=== PATIENT | female | born 1990 | race Caucasian/White ===

== ENCOUNTER 2016-09-12 06:00 | Inpatient (IN) ==
[2016-09-12] MEDS ORDERED: Famotidine 20 MG/2 ML VIAL IVP PRN (06:43)
[2016-09-12] MEDS ORDERED: Metoclopramide 10 MG/2 ML VIAL IVP PRN (06:43)
[2016-09-12] MEDS ORDERED: Naloxone 0.4 MG/ML INJ IVP PRN (06:43)
[2016-09-12] MEDS ORDERED: miSOPROStol 100 MCG TABLET PO STA (06:47)
[2016-09-12] MEDS ORDERED: D5% in 0.45% NACL 1,000 ML IVC SCH (07:00)
[2016-09-12 07:07] LABS: Basophils % 0.2 %; Eosinophils # 0.2 K/mcL (0.0-0.6); Eosinophils % 0.9 %; Hematocrit 40.5 % (35.3-44.9); Hemoglobin 12.8 g/dL (11.5-15.4); Immature Granulocytes % 1.1 % (0-4); Lymphocytes # 2.6 K/mcL (0.6-4.6); Lymphocytes % 14.6 %; Mean Corpuscular HGB Conc 31.6 g/dL (31.6-35.5); Mean Corpuscular Hemoglobin 27.6 pg (28.0-33.3); Mean Corpuscular Volume 87.5 fL (83.0-100.0); Mean Platelet Volume 10.6 fL (9.4-12.4); Monocytes # 0.9 K/mcL (0.0-1.3); Monocytes % 5.1 %; Neutrophils # 13.7 K/mcL (1.6-8.9); Platelet Count 254 K/mcL (140-400); Red Blood Count 4.63 M/mcL (3.82-4.97); Red Cell Distribution Width 14.3 % (11.5-14.5); Segmented Neutrophils % 78.1 %
--- NOTE | 2016-09-12 07:33 | OB/GYN History & Physical ---
Date of Encounter: 09/12/16 Time of Encounter: 08:29 Assessment and Plan (1) 39 weeks gestation of Current visit: Yes Status: Acute (2) Elective induction of labor planned Current visit: Yes Status: Acute Ms. Kaur is a 25 year old female at 39+5 reports to L&D for induction of labor. Patient was last seen in the office yesterday was measured as 3/60/-2 Labs: Blood type: O-, GBS -, Rubella immune, all other serologies normal. Plan is for elective induction today. Patient will be given cytotec. Progress will be monitored. Expect vaginal delivery. History of Present Illness Chief complaint: Induction of Labor HPI: Ms. Kaur is a 25 year old female at 39+5 reports to L&D for induction of labor. Patient received a rhogham injection at 31 weeks. Patient was last seen in the office yesterday was measured as 3/60/-2. There were no complications with this . Patient reports good movements. Patient denies vaginal bleeding, loss of fluid, feeling contractions, Chest pain, SOB, Nausea, vomiting, diarrhea, headache, blurry vision. Labs: Blood type: O-, GBS -, Rubella immune, all other serologies normal Past Med Surg Social Fam HX - Past Medical History Medical history: no medical history Psychiatric history: no psych history - Past Surgical History Surgical History: no surgical history - Social History Smoking Status: Never smoker Smokeless Tobacco Status: No Alcohol use: none Drug use: none - Family History Mother Living Status: Still Living Hx Family Cancer: Yes (thyroid cancer) Obstetrical History - Pregnancies : 1 Para: 0 Medications and Allergies Vitamins 1 tab PO DAILY 08/30/16 [History] Allergies No Known Allergies Allergy (Verified 01/30/16 19:24) Review of System OB All systems PM: reviewed and no additional remarkable complaints except as stated Exam - Constitutional Constitutional: well developed, well nourished, no acute distress - HEENT HEENT: EOMI, Mucus Membranes Moist - Neck Neck exam: normal inspection - Lungs Respiratory exam: CTAB - Cardiovascular Cardiovascular exam: RRR - Abdomen Abdomen: Present: bowel sounds normal, gravid, non tender (soft) - Extremities Extremities exam: normal inspection Deep Tendon Reflex Grade: 1+ Diminished - Cervix Dilation: 3 (per exam yesterday in office) Effacement: 60 Station: -2 Results Result Diagrams: 09/12/16 06:57 Abnormal lab results WBC 17.5 K/mcL (4.3-11.1) H 09/12/16 06:57 MCH 27.6 pg (28.0-33.3) L 09/12/16 06:57 Neutrophils # 13.7 K/mcL (1.6-8.9) H 09/12/16 06:57 All other labs normal. - VTE Reasons for not Prescribing Prophylaxis: Treatment not Indicated - Low risk for VTE - Attending Attestation I examined this patient and my medical decision-making was reviewed with the Resident Physician. I agree with the documented findings, disposition and treatment plan as described. Marnie Figueroa CNM
--- NOTE | 2016-09-12 10:55 | Anesthesia Evaluation PreOp ---
Date of Encounter: 09/12/16 Time of Encounter: 10:53 - Past History Planned Operation: emile Cardiac History: Denies any Significant Hx Pulmonary History: Denies Any Significant HX BOAT MASTER History: Denies Any Significant HX Other Medical History: Denies Any Significant HX Anesthesia History: No Prior Anesthetic Complications, Past Anesthesia : Yes (39 plus 5, ) Alcohol Use: none Drug use: none Medications and Allergies Vitamins 1 tab PO DAILY 08/30/16 [History] Allergies No Known Allergies Allergy (Verified 01/30/16 19:24) - Meds/Allergy Pre-op Review Medications Reviewed: Yes Allergies Reviewed: Yes Beta Blockers on Current Med List: No Anesthesia Results - Labs 09/12/16 06:57 Anesthesia Exam O2 Sat Height 1.7 m Weight 100.8 kg bp 134/82 Height: 67 Weight: 100 NPO (# of Hours): clear liquids - HEENT Pupil (Motor): Pupils equal Mallampati: II Teeth: Normal Oral Opening: Greater than 3 - BOAT MASTER LOC: Oriented BOAT MASTER Motor: Normal RUE, Normal LUE, Normal RLE, Normal LLE, Normal Face BOAT MASTER Sensory: Normal: RUE, LUE, RLE, LLE, Face - Cardiac Rhythm: Regular Murmur: None JVD: No Carotid Bruit: No - Pulmonary Breath Sounds: bilateral Clear Respiratory Effort: Symmetrical Anesthesia Assess/Plan ASA Score: 2 Modified Jeyson Scale for Level of Consciousness: Cooperative, oriented, and tranquil Anesthetic Plan: Regional Monitoring Plan: Standard Monitors Recovery Plan: Other
--- NOTE | 2016-09-12 10:58 | OB Labor Progress Note ---
Date of Encounter: 09/12/16 Time of Encounter: 10:00 Labor Progress Note - Subjective Subjective: Patient sitting on birthing ball. Not feeling any contractions - Vital Signs Vital Signs: VSS - Cervix Cervix: 2-3/70/-2 per exam in office yesterday - Heart Tones Heart Tones: 140's with moderate variability and accels. No decels noted - [place]: No contractions present per toco, palpation, or patient report - Plan Plan: Continue routine labor management GBS negative May consider second dose of cytotec at next cervical exam vs AROM vs pitocin Patient may have nubain upon request for pain Anticipate vaginal delivery POC per consult with Dr Gaviria
[2016-09-12] MEDS ORDERED: miSOPROStol 100 MCG TABLET PO SCH (11:45)
[2016-09-12] MEDS ORDERED: Ringers Solution, Lactated 1,000 ML ONE ×2 (15:50→22:51)
--- NOTE | 2016-09-12 15:53 | OB Labor Progress Note ---
Date of Encounter: 09/12/16 Time of Encounter: 15:47 Labor Progress Note - Subjective Subjective: Patient resting comfortably in bed. States she's feeling some mild cramps - Vital Signs Vital Signs: VSS - Cervix Cervix: 3-4/80/-1 tight, midposition - Heart Tones Heart Tones: 140's moderate variability with 15 x 15 accels and no decels - [place]: Irritability per toco and patient report - Plan Plan: Continue routine labor management GBS negative Patient is requesting epidural prior to AROM AROM after epidural placed and patient is comfortable Consider augmentation with pitocin if needed Anticipate vaginal delivery POC per consult with Dr Gaviria
[2016-09-12] MEDS ORDERED: *HR* Ropivacaine/PF 0.2% 10 ML AMPUL ONE ×2 (16:59→23:14)
[2016-09-12] MEDS ORDERED: *HR* FentaNYL (PF) 100 MCG/2 ML VIAL ONE (16:59)
[2016-09-12] MEDS ORDERED: Epidural Premix (fent/bupiv) 110 ML EP ONE (16:59)
[2016-09-12] MEDS ORDERED: *HR* FentaNYL (PF) 100 MCG/2 ML VIAL EP ONE (17:56)
[2016-09-12] MEDS ORDERED: *HR* Ropivacaine/PF 0.2% 10 ML AMPUL EP ONE (17:56)
[2016-09-12] MEDS ORDERED: EPHEDrine 50 MG/ML VIAL IVP PRN (17:56)
[2016-09-12] MEDS ORDERED: Ondansetron 4 MG/2 ML VIAL IVP PRN (17:56)
[2016-09-12] MEDS ORDERED: Epidural Premix (fent/bupiv) 110 ML EP SCH (18:00)
--- NOTE | 2016-09-12 18:01 | Anesthesia Procedures ---
Date of Encounter: 09/12/16 Time of Encounter: 17:57 Procedures: Anesthesia - Epidural/Spinal Patient ID/Chart reviewed: Yes Patient examined: Yes OB Eval: Contractions: Non-stressed pattern Supplemental Oxygen: None/Room Air Site Prep: Aseptic Technique, 0.5% Chlorhexidine/Alcohol Patient position: upright Local Anesthetic: Lidocaine 1% Amount of Local Anesthetic used: 3 Touhy Needle Gauge: 18 Touhy Needle Depth (cm): 6 Catheter Depth at Skin (cm): 12 Test Dose (1.5% Lido + Epi): Volume given (mls): 3 Test Dose Result: Negative Loading Dose: Fentanyl (mcg): 100 Loading Dose: Other: 6CC 0.2% ROPIVICAINE, 2CC FENTANYL Loading Dose Administered: Thru Touhy Needle Infusion Med: 0.125% Bupivacaine w/ 2 mcg/ml Fentanyl Infusion Rate (mls/hr): [address]: Tegaderm Interspace Used: L3-L4 Loss of Resistance (ERASMO): Yes Blood: Yes (see note) CSF: No Paresthesia: No Procedure: Strict asepsis. L2-3 x 4 passes until ERASMO. Bolus thru needle and catheter threaded into vessel and confirmed by positive test dose. L2-3 again x 2 passes until ERASMO. Catheter threaded to 12 cm, test dose negative. Gtt started at 14ml/hr.
--- NOTE | 2016-09-12 18:08 | OB Labor Progress Note ---
Date of Encounter: 09/12/16 Time of Encounter: 18:06 Labor Progress Note - Subjective Subjective: Resting comfortably in bed with epidural in place. - Vital Signs Vital Signs: VSS - Cervix Cervix: 4/80/-1 soft mid-position - Heart Tones Heart Tones: 130's with moderate variability and 15 x 15 accels with no decels. - [place]: occasional contractions - Interventions Interventions: Attempt to SROM x 2. No fluid noted, but felt bag snag. - Plan Plan: Continue routine labor management GBS negative Start pitocin at 2x2 until in adequate labor pattern Anticipate vaginal delivery POC per consult with Dr Gaviria.
[2016-09-12] MEDS ORDERED: Oxytocin 20 units/ LR 1000 mL 20 UNIT/1,000 ML BAG IVC SCH (18:15)
--- NOTE | 2016-09-12 22:09 | OB Labor Progress Note ---
Date of Encounter: 09/12/16 Time of Encounter: 22:07 Labor Progress Note - Subjective Subjective: Patient resting comfortably in bed with epidural in place - Vital Signs Vital Signs: VSS - Cervix Cervix: 5-6/80/-1 small-moderate amount of cap palpated during exam. - Heart Tones Heart Tones: 110-120's with moderate variability and 15 x 15 accels and early decels - [place]: contractions every 2-4 minutes per toco moderate to palpation. - Interventions Interventions: Internal monitors placed. IUPC and FSE placed without difficulty; fetus and mother tolerated well. - Plan Plan: Continue routine labor management GBS negative Ruptured for 4 hours Pitocin currently running at 8mu/min, adequate labor pattern Encouraged frequent position changes with peanut ball to encourage rotation Continue to monitor caput with vaginal exams Anticipate vaginal delivery, consider c/s if caput continues to increase without change in dilation/ station POC per consult with Dr Gaviria.
[2016-09-12] MEDS ORDERED: 0.9 % Sodium Chloride 1,000 ML ONE (22:55)
--- NOTE | 2016-09-12 23:03 | OB Labor Progress Note ---
Date of Encounter: 09/12/16 Time of Encounter: 22:59 Labor Progress Note - Subjective Subjective: Asked to review strip / evaluate patient . - Cervix Cervix: /9 - Heart Tones Heart Tones: 120-160 with accelerations and accelerations with scalp stimulation .Episodic variables noted . Cat 2 . Will proceed with amnioinfusion .
--- NOTE | 2016-09-12 23:58 | OB Labor Progress Note ---
Date of Encounter: 09/12/16 Time of Encounter: 23:55 Labor Progress Note - Subjective Subjective: Patient resting comfortably in bed after epidural bolus and amnioinfusion started - Vital Signs Vital Signs: VSS - Cervix Cervix: 7-8/90/-1 - Heart Tones Heart Tones: 110-120 with moderate variability and early decels. category II - [place]: Contractions every 90seconds to 3 minutes. lasting 45-60 seconds in length. Adequate contractions per IUPC - Plan Plan: Continue routine labor management GBS negative Continue IV pitocin to maintain adequate contractions Anticipate vaginal delivery POC per consult with Dr Gaviria
[2016-09-13] MEDS ORDERED: Ringers Solution, Lactated 1,000 ML ONE ×2 (00:24→01:16)
[2016-09-13] MEDS ORDERED: Terbutaline 1 MG/ML VIAL SQ ONE (00:42)
[2016-09-13] MEDS ORDERED: Chloroprocaine/PF 20 ML VIAL INFILT ONE ×2 (00:46→01:18)
[2016-09-13] MEDS ORDERED: *HR* Oxytocin 10 UNIT/ML VIAL IM ONE (00:47)
--- NOTE | 2016-09-13 00:51 | OB Labor Progress Note ---
Date of Encounter: 09/13/16 Time of Encounter: 00:42 Labor Progress Note - Subjective Subjective: Patient resting comfortably in bed. - Vital Signs Vital Signs: VSS - Cervix Cervix: 8-9/100/-1 - Heart Tones Heart Tones: 110-120 with moderate variability accelerations with scalp stimulation, variable , early, and late decelerations. - [place]: contractions every 3-4 minutes 60 seconds in length - Interventions Interventions: Dr Gaviria notified for strip review and to update on strip. Dr Gaviria called section - Plan Plan: Discussed section with patient. Patient consents to with Dr Gaviria present for consent GBS negative Ruptured for 7 hours
[2016-09-13] MEDS ORDERED: *HR* Morphine Sulfate/PF 5 MG/10 ML AMPUL ONE (01:17)
[2016-09-13] MEDS ORDERED: Ondansetron 4 MG/2 ML VIAL ONE (01:25)
--- NOTE | 2016-09-13 02:09 | OB/GYN Procedure Note ---
Section - Date of procedure: 09/13/16 Preop diagnosis: category 2 FHT tracing Post-op diagnosis: same Procedure: primary low transverse Surgeon: Juan Gaviria Estimated blood loss (cc): 500 Anesthesiologist: Angelica Flores Anesthesia Type: Epidural section complications: none Disposition: PACU Specimens: Placenta - (s) A Infant Delivery Date: 09/13/16 Infant Delivery Time: : Position: ROP Gender: Male Viability: Viable Pounds: 5 Ounces: 15 at 1 minute: 8 at 5 minutes: 9 Specimens collected: cord blood Placenta: complete extraction Cord: nuchal cord - Narrative Narrative: Patient was taken to the operating room. She was placed in supine position, prepped and draped in usual manner. After satisfactory anesthesia was achieved and appropriate timeout was performed, the abdomen was entered through standard Maylard incision. A Tianna retractor was placed. Peritoneum overlying the lower uterine segment was incised in U-shaped fashion. Uterine cavity was entered sharply and extended laterally. Fluid was clear. The head, shoulders, torso were delivered. The umbilical cord was double clamped and cut and the was handed to nursery staff for further evaluation. The placenta was removed as to pathology for analysis. The uterus is brought from within the abdominal cavity and wiped clean. Uterus was closed with 0 Monocryl in a single layer. Peritoneum overlying the lower uterine segment was reapproximated with a 2-0 Vicryl. The retractor was removed. After assurance of hemostasis, the abdomen was closed in standard fashion using 0 Vicryl to fascia, 3-0 Monocryl and the skin, and sterile dressing was applied. Patient did well and was taken to recovery room in satisfactory condition. Counts were correct.
[2016-09-13] MEDS: *HR* HYDROmorphone (PF) 1 MG/ML SYRINGE IVP PRN ×2 (02:18→02:23)
[2016-09-13] MEDS ORDERED: Rho Immune Globulin 1,500 UNIT SYRINGE IM ONE (04:12)
[2016-09-13] MEDS ORDERED: Sennosides 8.6 MG TABLET PO PRN (04:12)
[2016-09-13] MEDS ORDERED: Simethicone 80 MG TAB.CHEW PO PRN (04:12)
[2016-09-13] MEDS ORDERED: Metoclopramide 10 MG/2 ML VIAL IVP PRN (04:12)
[2016-09-13] MEDS ORDERED: Ondansetron 4 MG/2 ML VIAL IVP PRN (04:12)
[2016-09-13] MEDS: *HR* Morphine 2 MG/ML SYRINGE IVP PRN ×2 (04:37→16:42)
[2016-09-13] MEDS: Prenatal Vit/FA 1 EACH TABLET PO SCH (08:41)
[2016-09-13] MEDS ORDERED: NON-FORMULARY MEDICATION 1 EACH EACH (Prenatal Vitamins 1 TAB) PO SCH (09:00)
[2016-09-13] MEDS: Ondansetron ODT 4 MG TAB.RAPDIS SL PRN ×2 (10:39→16:24)
[2016-09-13] MEDS: Oxytocin 20 units/ LR 1000 mL 20 UNIT/1,000 ML BAG IVC SCH ×2 (10:40→18:49)
[2016-09-13] MEDS: Ibuprofen 600 MG TABLET PO PRN ×2 (14:54→22:29)
[2016-09-13] MEDS ORDERED: Scopolamine Patch 1.5 MG PATCH.TD72 TD ONE (15:21)
[2016-09-13] MEDS ORDERED: *HR* Promethazine 25 MG/ML VIAL IVP PRN (15:22)
--- NOTE | 2016-09-13 15:28 | Anesthesia Evaluation Post Op ---
Date of Encounter: 09/13/16 Time of Encounter: 15:27 - Vital Signs Vital Signs: vss - Lungs Lungs: Clear Ascult./Percussion - Airway Airway: Non-obstructed - Mental Status Mental Status: Alert & Oriented, Answers Appropriately - Pain Pain Scale used: [place] (Faces) - Nausea Vomiting Nausea Vomiting: Present (wanting more medication to help)
[2016-09-14] MEDS: *HR* OxyCODONE/APAP 5/325 TABLET PO PRN ×4 (00:53→20:29)
[2016-09-14] MEDS: Ibuprofen 600 MG TABLET PO PRN ×3 (06:47→20:28)
[2016-09-14 07:02] LABS: Basophils % 0.2 %; Eosinophils # 0.1 K/mcL (0.0-0.6); Eosinophils % 0.8 %; Hematocrit 34.2 % (35.3-44.9); Immature Granulocytes % 1.2 % (0-4); Lymphocytes # 2.4 K/mcL (0.6-4.6); Lymphocytes % 19.8 %; Mean Corpuscular Hemoglobin 27.9 pg (28.0-33.3); Mean Platelet Volume 10.2 fL (9.4-12.4); Monocytes # 0.8 K/mcL (0.0-1.3); Monocytes % 6.3 %; Neutrophils # 8.7 K/mcL (1.6-8.9); Platelet Count 233 K/mcL (140-400); Red Cell Distribution Width 14.6 % (11.5-14.5); Segmented Neutrophils % 71.7 %
[2016-09-14 07:14] LABS: Hemoglobin 10.6 g/dL (11.5-15.4)
[2016-09-14] MEDS: Prenatal Vit/FA 1 EACH TABLET PO SCH (08:36)
--- NOTE | 2016-09-14 09:27 | OB/GYN Progress Note ---
Date of Encounter: 09/14/16 Time of Encounter: 09:23 - Assessment and Plan (1) delivery, delivered, current hospitalization Current Visit: Yes Status: Acute The patient has some delay return of bowel function. She is tolerating a regular diet and oral pain medication. Aggressive GI toilet recommended. Patient is to increase ambulation. If no flatus by lunch then rectal suppository has been ordered and nursing aware of plan of care (2) anemia Current Visit: Yes Status: Acute Iron supplementation as ordered (3) Constipation by delayed colonic transit Current Visit: Yes Status: Acute Observe for ileus. Increase ambulation, continue regular diet. Dulcolax suppository ordered if needed Subjective - Subjective Principal diagnosis: POD1 C/S Interval history: The patient is postop day 1 from a primary section. The patient is tolerating a regular diet and voiding. She had some nausea yesterday. She is taking oral pain medication. She reports that she feels her tummy rumbling but has not had any flatus. She has been ambulating in her room. Patient reports: voiding normally, pain well controlled, appetite poor, ambulating normally, other (No flatus) [place]: doing well, nursing well Objective - Vital Signs Latest vital signs: Vital Signs Temp Pulse Resp BP Pulse Ox 09/14/16 08:30 98.4 F 85 18 104/69 97 09/13/16 22:00 97.5 F L 90 15 112/74 98 09/13/16 15:38 98.7 F 99 18 111/71 09/13/16 11:59 98.0 F 99 16 106/66 Intake and Output 09/13/16 09/14/16 09/14/16 23:59 07:59 15:59 Intake Total 1000 / 1000 Output Total 900 / 900 450 / 450 Balance 100 / 100 -450 / -450 Intake: IV Fluids 1000 / 1000 Pitocin 20 unit In 1,000 1000 / 1000 ml @ 125 mls/hr IVC .Q8H [facility] Rx#:[id number] Output: Urine 450 / 450 Catheter 900 / 900 Other: Weight 96.4 kg Patient Weight 09/14/16 23:59 Weight 96.4 kg - Exam Lungs: bilateral: normal Chest: Normal S1, Normal S2 Extremities: Present: edema (2+). Absent: tenderness Abdomen: Present: distention (Mild with tympany), tenderness (Appropriate without peritoneal signs), other (Hypoactive bowel sounds) Incision: Present: dry, dressed - Labs Labs: Laboratory Results - last 24 hr 09/13/16 09/14/16 02:15 06:53 WBC 12.1 H RBC 3.80 L Hgb 10.6 L D Hct 34.2 L MCV 90.0 MCH 27.9 L MCHC 31.0 L RDW 14.6 H Plt Count 233 MPV 10.2 Immature Gran % 1.2 Seg Neutrophils % 71.7 Lymphocytes % 19.8 Monocytes % 6.3 Eosinophils % 0.8 Basophils % 0.2 Neutrophils # 8.7 Lymphocytes # 2.4 Monocytes # 0.8 Eosinophils # 0.1 Basophils # 0.0 Screen NEGATIVE Rhogam Req for Mother 1 - Allied health notes Allied health notes reviewed: nursing
[2016-09-14] MEDS ORDERED: Bisacodyl 10 MG RECTAL SUPPOSITORY RC PRN (09:33)
[2016-09-15] MEDS: Ibuprofen 600 MG TABLET PO PRN (08:17)
[2016-09-15] MEDS: *HR* OxyCODONE/APAP 5/325 TABLET PO PRN (08:17)
[2016-09-15] MEDS: Prenatal Vit/FA 1 EACH TABLET PO SCH (08:17)
[2016-09-15 09:36] VITALS: BP 98/66
--- NOTE | 2016-09-15 10:23 | Discharge Summary ---
Date of Encounter: 09/15/16 Time of Encounter: 10:23 - Discharge Diagnosis (1) delivery, delivered, current hospitalization Priority: Primary Status: Acute Comments: Pt meeting all milestones. Tolerates meals, pain well managed on PO medication, going well. - Discharge Medications Prescriptions: OxyCODONE/APAP 5/325 [Percocet 5/325 MG] 1 each PO Q4HR PRN #20 tab PRN Reason: Moderate pain 4-6 Ibuprofen [Motrin] 600 mg PO Q6HR PRN #60 tab PRN Reason: Cramping Docusate [Colace] 100 mg PO BID #60 Home Medications: Breast Pump [BREAST PUMP] 1 each .ROUTE AD #1 each 09/15/16 [Rx] Docusate [Colace] 100 mg PO BID #60 09/15/16 [Rx] Ibuprofen [Motrin] 600 mg PO Q6HR PRN #60 tab 09/15/16 [Rx] OxyCODONE/APAP 5/325 [Percocet 5/325 MG] 1 each PO Q4HR PRN #20 tab 09/15/16 [Rx ] Vit/FA 1 each PO DAILY tab 09/15/16 [Rx] Allergies/Adverse Reactions: Allergies No Known Allergies Allergy (Verified 01/30/16 19:24) Data Procedures and tests throughout hospitalization: Laboratory Tests 09/12/16 09/13/16 09/14/16 06:57 02:15 06:53 WBC 17.5 H 12.1 H RBC 4.63 3.80 L Hgb 12.8 10.6 L D Hct 40.5 34.2 L MCV 87.5 90.0 MCH 27.6 L 27.9 L MCHC 31.6 31.0 L RDW 14.3 14.6 H Plt Count 254 233 MPV 10.6 10.2 Immature Gran % 1.1 1.2 Seg Neutrophils % 78.1 71.7 Lymphocytes % 14.6 19.8 Monocytes % 5.1 6.3 Eosinophils % 0.9 0.8 Basophils % 0.2 0.2 Neutrophils # 13.7 H 8.7 Lymphocytes # 2.6 2.4 Monocytes # 0.9 0.8 Eosinophils # 0.2 0.1 Basophils # 0.0 0.0 Screen NEGATIVE Baby's Blood Type O RH POSITIVE Mother's Blood Type O RH NEGATIVE Rhogam Indicated YES Rhogam Req for Mother 1 Date of admission: 09/12/16 06:03 Primary care physician: PCP NO Discharging clinician: Jasmyne Sanchez Anticipated date of discharge: 09/15/16 - Patient Status Disposition: Home, Self-Care Condition: Good Functional capacity at discharge: independent ambulation Overall status at discharge: patient is back to baseline - Discharge Instructions Follow Up With: NO,PCP [Primary Care Provider] - Juan Gaviria MD [Partnered Physician] - - Diet and Activity Activity: resume usual activities as tolerated Diet: regular diet Hospital Course Reason for admission: section, induction of labor Delivery: section Other procedures: none complications: none Discharge diagnosis: IUP at term delivered [place] baby: male Hospital course: Section - Date of procedure: 09/13/16 Preop diagnosis: category 2 FHT tracing Post-op diagnosis: same Procedure: primary low transverse Surgeon: Juan Gaviria Estimated blood loss (cc): 500 Anesthesiologist: Angelica Flores Anesthesia Type: Epidural section complications: none Disposition: PACU Specimens: Placenta - Infant (s) A Infant Delivery Date: 09/13/16 Delivery Time: : Position: ROP Gender: Male Viability: Viable Pounds: 5 Ounces: 15 at 1 minute: 8 at 5 minutes: 9 Specimens collected: cord blood Placenta: complete extraction Cord: nuchal cord - Narrative Narrative: Patient was taken to the operating room. She was placed in supine position, prepped and draped in usual manner. After satisfactory anesthesia was achieved and appropriate timeout was performed, the abdomen was entered through standard Maylard incision. A Tianna retractor was placed. Peritoneum overlying the lower uterine segment was incised in U-shaped fashion. Uterine cavity was entered sharply and extended laterally. Fluid was clear. The head, shoulders, torso were delivered. The umbilical cord was double clamped and cut and the infant was handed to nursery staff for further evaluation. The placenta was removed as to pathology for analysis. The uterus is brought from within the abdominal cavity and wiped clean. Uterus was closed with 0 Monocryl in a single layer. Peritoneum overlying the lower uterine segment was reapproximated with a 2-0 Vicryl. The retractor was removed. After assurance of hemostasis, the abdomen was closed in standard fashion using 0 Vicryl to fascia, 3-0 Monocryl and the skin, and sterile dressing was applied. Patient did well and was taken to recovery room in satisfactory condition. Counts were correct. Stable in and appropriate for discharge OAARS reviewed Time Attestation: Total time spent providing and/or coordinating discharge services: - VTE Reasons for not Prescribing Prophylaxis: Treatment not Indicated - Low risk for VTE Documentation of Mechanical Device: Intermittent pneumatic compression device Exam - Constitutional Vitals: Temp Pulse Resp BP Pulse Ox 98.3 F 76 16 98/66 97 09/15/16 09:35 09/15/16 09:35 09/15/16 09:35 09/15/16 09:35 09/15/16 09:35 General appearance IM: A&O X 3 - Respiratory Respiratory exam: Present: CTAB - Cardiovascular Cardiovascular exam IM: Present: RRR - GI/Abdominal GI/Abdominal exam IM: normal bowel sounds, soft Incision: dry, dressed (picot dressing in place) - Uterine Tone: Firm Uterus Position: At Umbilicus - Neurological Exam Neurological exam: normal gait, oriented X3 - Psychiatric Additional comments: reports good mood
== END 2016-09-15 11:30 | disposition home or self-care (01) | DRG 540 ==
LOC: 1NENULAB 06:03 → 1NENUOBS 09-13 04:14
PROVIDERS: ADMIT Obstetrics & Gynecology; ATTEND Obstetrics & Gynecology

== ENCOUNTER 2018-10-29 05:45 | Inpatient (IN) ==
[2018-10-29] MEDS ORDERED: Naloxone 0.4 MG/ML INJ IVP PRN (05:53)
[2018-10-29] MEDS ORDERED: Metoclopramide 10 MG/2 ML VIAL IVP PRN ×3 (05:53→19:48)
[2018-10-29] MEDS ORDERED: Famotidine 20 MG/2 ML VIAL IVP PRN (05:53)
[2018-10-29] MEDS ORDERED: Ringers Solution, Lactated 1,000 ML IVC ONE (05:54)
[2018-10-29] MEDS ORDERED: Ringers Solution, Lactated 1,000 ML IVC SCH ×2 (06:00→20:00)
[2018-10-29 06:29] LABS: Basophils % 0.2 %; Eosinophils # 0.2 K/mcL (0.0-0.6); Hematocrit 37.8 % (35.3-44.9); Immature Granulocytes % 0.9 % (0-4); Lymphocytes # 2.5 K/mcL (0.6-4.6); Lymphocytes % 15.1 %; Mean Corpuscular HGB Conc 31.7 g/dL (31.6-35.5); Mean Corpuscular Volume 88.3 fL (83.0-100.0); Monocytes # 0.9 K/mcL (0.0-1.3); Monocytes % 5.6 %; Neutrophils # 12.7 K/mcL (1.6-8.9); Platelet Count 226 K/mcL (140-400); Red Blood Count 4.28 M/mcL (3.82-4.97); Red Cell Distribution Width 14.7 % (11.5-14.5); Segmented Neutrophils % 77.2 %; White Blood Count 16.5 K/mcL (4.3-11.1)
[2018-10-29] MEDS ORDERED: *HR* Oxytocin 10 UNIT/ML VIAL IM ONE (07:45)
[2018-10-29] MEDS ORDERED: Ringers Solution, Lactated 1,000 ML ONE (07:45)
--- NOTE | 2018-10-29 07:45 | OB/GYN History & Physical ---
Date of Encounter: 10/29/18 Time of Encounter: 07:43 Assessment and Plan (1) Previous delivery affecting , antepartum Current visit: Yes Status: Acute (2) 39 weeks gestation of Current visit: No Status: Acute History of Present Illness HPI: Ms. Kaur is a 27 year old female Patient is a 27-year-old 2 para 1 white female enters today for repeat section. She has been followed in my office without any problems. She denies spontaneous rupture membranes, vaginal bleeding, and reports active fetu s. She had a section with her last delivery. Past Med Surg Social Fam HX - Past Medical History Medical history: no medical history Additional medical history: syncope episodes Psychiatric history: depression - Past Surgical History Surgical History: Additional surgical history: trigger release of left hand - Social History Smoking Status: Never smoker Smokeless Tobacco Status: No Alcohol use: none Drug use: none - Family History Mother Family Member Ethnicity: Non- Living Status: Still Living Hx Family Cardiac Disorders: No Hx Family Respiratory Disorders: No Hx Family Cancer: Yes (thyroid cancer) Hx Family GI Disorders: No Hx Family Genitourinary Disorders: No Hx Family Endocrine Disorder: No Hx Family Musculoskeletal Disorders: No Hx Family Neuromuscular Disorders: No Hx Family Neurologic Disorders: No Hx Family HEENT Disorders: No Hx Family Autoimmune Disorders: No Hx Family Reproductive Disorders: No Hx Family Psychosocial Disorders: No Hx Family Medical Disorders: No Obstetrical History - Pregnancies : 2 Para: 1 Medications and Allergies Allergy/AdvReac Type Severity Reaction Status Date / Time No Known Allergies Allergy Verified 10/29/18 06:05 Review of System OB All systems PM: reviewed and no additional remarkable complaints except as stated - Genitourinary Genitourinary: amenorrhea - Menstruation Menstruation: amenorrhea Exam - Constitutional Constitutional: well developed, well nourished, no acute distress, obese - HEENT HEENT: Normocephaly - Neck Neck exam: full ROM - Lungs Respiratory exam: CTAB - Cardiovascular Cardiovascular exam: RRR - Abdomen Abdomen: Present: bowel sounds normal, gravid - Extremities Extremities exam: full ROM Deep Tendon Reflex Grade: 2+ Normal - Uterus Uterus exam: Present: enlarged Results Result Diagrams: 10/29/18 06:06 Abnormal lab results WBC 16.5 K/mcL (4.3-11.1) H 10/29/18 06:06 RDW 14.7 % (11.5-14.5) H 10/29/18 06:06 Neutrophils # 12.7 K/mcL (1.6-8.9) H 10/29/18 06:06 All other labs normal. - Attending Attestation chary dawkins md [facility]og
[2018-10-29] MEDS ORDERED: EPHEDrine 50 MG/ML VIAL ONE (07:46)
[2018-10-29] MEDS ORDERED: *HR* Phenylephrine 10 MG/ML VIAL ONE (07:47)
[2018-10-29] MEDS ORDERED: *HR* FentaNYL (PF) 100 MCG/2 ML VIAL ONE (07:48)
[2018-10-29] MEDS ORDERED: *HR* Morphine Sulfate/PF 10 MG/10 ML AMPUL ONE (07:48)
[2018-10-29] MEDS ORDERED: Dexamethasone 4 MG/ML VIAL ONE (08:11)
[2018-10-29] MEDS ORDERED: Ondansetron 4 MG/2 ML VIAL ONE (08:11)
[2018-10-29] MEDS ORDERED: Ketorolac 30 MG/ML VIAL ONE (08:11)
--- NOTE | 2018-10-29 08:18 | Anesthesia Evaluation PreOp ---
Date of Encounter: 10/29/18 Time of Encounter: 07:10 - Past History Planned Operation: RCS Cardiac History: Denies any Significant Hx Pulmonary History: Denies Any Significant HX AVID EDITOR History: Denies Any Significant HX Other Medical History: Denies Any Significant HX Anesthesia History: No Prior Anesthetic Complications : Yes Test: Positive Alcohol Use: none Drug use: none Medications and Allergies Allergy/AdvReac Type Severity Reaction Status Date / Time No Known Allergies Allergy Verified 10/29/18 06:05 - Meds/Allergy Pre-op Review Medications Reviewed: Yes Allergies Reviewed: Yes Beta Blockers on Current Med List: No Anesthesia Results - Labs 10/29/18 06:06 Anesthesia Exam 119/66 79 16 98% Height: 1.7 Weight: 97KG NPO (# of Hours): MN Pain Scale: 0 - HEENT Pupil (Motor): Pupils equal Mallampati: II Teeth: Normal Oral Opening: Greater than 3 - AVID EDITOR LOC: Oriented AVID EDITOR Motor: Normal RUE, Normal LUE, Normal RLE, Normal LLE, Normal Face AVID EDITOR Sensory: Normal: RUE, LUE, RLE, LLE, Face - Cardiac Rhythm: Regular Murmur: None JVD: No Carotid Bruit: No - Pulmonary Breath Sounds: bilateral Clear Respiratory Effort: Symmetrical Anesthesia Assess/Plan ASA Score: 1 Level of consciousness: Cooperative Monitoring Plan: Standard Monitors
--- NOTE | 2018-10-29 08:21 | Anesthesia Procedures ---
Date of Encounter: 10/29/18 Time of Encounter: 08:00 Procedures: Anesthesia - Epidural/Spinal Patient ID/Chart reviewed: Yes Patient examined: Yes OB Eval: Gestational age: 39.1 OB Eval: : 2 OB Eval: Hx Para: 1 OB Eval: Contractions: Non-stressed pattern Consent Obtained: Yes Supplemental Oxygen: None/Room Air Site Prep: Aseptic Technique, Sterile prep and drape, Povidone-Iodine 1% Patient position: upright Amount of Local Anesthetic used: 3 Interspace Used: L4-L5 Loss of Resistance (ERASMO): No Blood: No CSF: Yes Paresthesia: Yes Spinal Needle Gauge: 22 Procedure: bupivicaine 0.75% 1.6ml fentanyl 10mcg duramorph 0.3mg Vitals + FHT's: stable throughout see nursing notes
[2018-10-29 09:01] LABS: Amphetamine Screen,Urine Negative ng/mL (Cutoff=1000); Barbiturate Screen,Urine Negative ng/mL (Cutoff=200); Benzodiazepines Screen,Urine Negative ng/mL (Cutoff=200); Cannabinoid Screen,Urine Negative ng/mL (Cutoff = 50); Cocaine Screen,Urine Negative ng/mL (Cutoff= 300); Opiate Screen,Urine Negative ng/mL (Cutoff=300); Phencyclidine Screen,Urine Negative ng/mL (Cutoff=25)
--- NOTE | 2018-10-29 09:26 | OB/GYN Procedure Note ---
Section - Date of procedure: 10/29/18 Preop diagnosis: desires repeat Post-op diagnosis: same Procedure: repeat low transverse Surgeon: Juan Marie Blood Loss: 300 Was there an library media assistant present: No Anesthesia Type: Spinal section complications: none Disposition: PACU Specimens: Placenta - Infant (s) A Infant Delivery Date: 10/29/18 Infant Delivery Time: 08:33 Position: MERNA Gender: Male Viability: Viable Pounds: 7 Ounces: 12 at 1 minute: 9 at 5 minutes: 9 Shoulder Dystocia: not encountered Specimens collected: cord blood Placenta: complete extraction - Narrative Narrative: Patient was taken to the operating room. After satisfactory spinal anesthesia was achieved, patient was placed in supine position Carcamo catheter inserted and prepped and draped in usual manner. After satisfactory timeout was obtained, the abdomen was entered through standard Maylard incision. Peritoneum overlying the lower uterine segment was incised in the U-shaped fashion. Cavity was entered sharply extended laterally. Membranes ruptured with clear fluid. With fundal pressure the head was delivered. The was suctioned upon delivery of the head. The remainder of the was delivered. The umbilical cord double clamped and cut and the was handed to nursery staff for further evaluation. Placenta was removed. Uterus was closed with 0 Monocryl in a single layer. After assurance hemostasis, abdomen was closed standard fashion using 0 strata fix on the fascia and 3-0 Monocryl in the skin. Sterile dressing was applied. Patient did well was taken to recovery room in satisfactory condition. Counts were correct.
[2018-10-29] MEDS ORDERED: Ondansetron 4 MG/2 ML VIAL IVP PRN ×2 (10:04→19:48)
[2018-10-29] MEDS ORDERED: Sennosides 8.6 MG TABLET PO PRN ×2 (10:04→19:48)
[2018-10-29] MEDS ORDERED: Acetaminophen 325 MG TABLET PO PRN ×2 (10:04→19:48)
[2018-10-29] MEDS ORDERED: Oxytocin 20 units/ LR 1000 mL 20 UNIT/1,000 ML BAG IVC SCH ×2 (10:04→20:00)
[2018-10-29] MEDS ORDERED: *HR* OxyCODONE/APAP 5/325 TABLET PO PRN ×2 (10:04→19:48)
[2018-10-29] MEDS ORDERED: Rho Immune Globulin 1,500 UNIT SYRINGE IM ONE ×2 (10:04→19:48)
[2018-10-29] MEDS ORDERED: Simethicone 80 MG TAB.CHEW PO PRN ×2 (10:04→19:48)
[2018-10-29] MEDS ORDERED: *HR* Meperidine 25 MG/ML SYRINGE IVP PRN (10:06)
[2018-10-29] MEDS ORDERED: *HR* HYDROmorphone (PF) 1 MG/ML SYRINGE IVP PRN ×2 (10:06)
[2018-10-29] MEDS ORDERED: *HR* Promethazine 25 MG/ML VIAL IVP PRN (10:06)
[2018-10-29] MEDS ORDERED: Ondansetron 4 MG/2 ML VIAL IVP ONE (10:06)
[2018-10-29] MEDS ORDERED: Ibuprofen 600 MG TABLET PO SCH (12:00)
[2018-10-29] MEDS ORDERED: Lanolin 7 G OINT...G. TP PRN (19:48)
[2018-10-30 06:09] LABS: Basophils % 0.1 %; Eosinophils # 0.1 K/mcL (0.0-0.6); Eosinophils % 0.7 %; Hematocrit 29.1 % (35.3-44.9); Immature Granulocytes % 0.9 % (0-4); Lymphocytes # 2.9 K/mcL (0.6-4.6); Lymphocytes % 18.4 %; Mean Corpuscular HGB Conc 31.6 g/dL (31.6-35.5); Mean Corpuscular Hemoglobin 28.2 pg (28.0-33.3); Mean Corpuscular Volume 89.3 fL (83.0-100.0); Mean Platelet Volume 10.6 fL (9.4-12.4); Monocytes # 1.1 K/mcL (0.0-1.3); Neutrophils # 11.4 K/mcL (1.6-8.9); Platelet Count 207 K/mcL (140-400); Red Blood Count 3.26 M/mcL (3.82-4.97); Red Cell Distribution Width 14.8 % (11.5-14.5); Segmented Neutrophils % 72.9 %; White Blood Count 15.6 K/mcL (4.3-11.1)
[2018-10-30 06:15] LABS: Hemoglobin 9.2 g/dL (11.5-15.4)
[2018-10-30] MEDS: Ibuprofen 600 MG TABLET PO PRN ×3 (07:52→20:35)
[2018-10-30] MEDS: Prenatal Vit/FA 1 EACH TABLET PO SCH (07:52)
[2018-10-30] MEDS ORDERED: Prenatal Vit/FA 1 EACH TABLET PO SCH (09:00)
[2018-10-30 20:30] VITALS: BP 119/79
[2018-10-31] MEDS: Ibuprofen 600 MG TABLET PO PRN (04:30)
[2018-10-31] MEDS: Prenatal Vit/FA 1 EACH TABLET PO SCH (08:56)
--- NOTE | 2018-10-31 09:06 | Discharge Summary ---
Date of Encounter: 10/31/18 Time of Encounter: 09:01 - Discharge Diagnosis (1) Status post repeat low transverse section Priority: Primary Status: Acute Comments: Feeling well Tolerating regular diet Pain well-controlled with by mouth pain meds Ambulating independently Voiding independently Lochia light Passing flatus, no BM yet Vital signs stable Discharge home today (2) Breast feeding status of mother Priority: Secondary Status: Acute Comments: Community resources provided Patient will supplement with formula over the weekend due to weight loss at 12% (3) anemia Priority: Secondary Status: Acute Comments: Continue iron supplementation for 1 month - Discharge Medications Prescriptions: New Ferrous Sulfate 325 mg PO 0800 #30 tablet Ibuprofen [Motrin] 600 mg PO Q6HR PRN #30 tablet PRN Reason: Cramping OxyCODONE/APAP 5/325 [Percocet 5/325 MG] 1 each PO Q6H PRN 5 Days #20 tablet PRN Reason: Moderate pain 4-6 Acetaminophen [Tylenol] 325 mg PO Q6HR PRN tablet PRN Reason: Fever/Pain Docusate [Colace] 100 mg PO BID #60 capsule Lanolin [Lansinoh] 1 appl TP TID PRN oint...g. PRN Reason: Sore Nipples Home Medications: Acetaminophen [Tylenol] 325 mg PO Q6HR PRN tablet 10/31/18 [Rx] Docusate [Colace] 100 mg PO BID #60 capsule 10/31/18 [Rx] Ferrous Sulfate 325 mg PO 0800 #30 tablet 10/31/18 [Rx] Ibuprofen [Motrin] 600 mg PO Q6HR PRN #30 tablet 10/31/18 [Rx] Lanolin [Lansinoh] 1 appl TP TID PRN oint...g. 10/31/18 [Rx] OxyCODONE/APAP 5/325 [Percocet 5/325 MG] 1 each PO Q6H PRN 5 Days #20 tablet 10/31/18 [Rx] Allergies/Adverse Reactions: Allergy/AdvReac Type Severity Reaction Status Date / Time No Known Allergies Allergy Verified 10/29/18 06:05 Data Procedures and tests throughout hospitalization: Laboratory Tests 10/29/18 10/29/18 10/29/18 06:06 06:06 09:51 WBC 16.5 H RBC 4.28 Hgb 12.0 Hct 37.8 MCV 88.3 MCH 28.0 MCHC 31.7 RDW 14.7 H Plt Count 226 MPV 11.0 Immature Gran % 0.9 Seg Neutrophils % 77.2 Lymphocytes % 15.1 Monocytes % 5.6 Eosinophils % 1.0 Basophils % 0.2 Neutrophils # 12.7 H Lymphocytes # 2.5 Monocytes # 0.9 Eosinophils # 0.2 Basophils # 0.0 Urine Opiates Screen Negative Ur Buprenorphine Scrn Negative Ur Barbiturates Screen Negative Ur Phencyclidine Scrn Negative Ur Amphetamines Screen Negative U Benzodiazepines Scrn Negative Urine Cocaine Screen Negative U Marijuana (THC) Screen Negative Ur Drug Screen Interp See Below Screen NEGATIVE Baby's Blood Type A RH POSITIVE Mother's Blood Type O RH NEGATIVE Rhogam Indicated YES Rhogam Req for Mother 1 10/30/18 05:42 WBC 15.6 H RBC 3.26 L Hgb 9.2 L D Hct 29.1 L MCV 89.3 MCH 28.2 MCHC 31.6 RDW 14.8 H Plt Count 207 MPV 10.6 Immature Gran % 0.9 Seg Neutrophils % 72.9 Lymphocytes % 18.4 Monocytes % 7.0 Eosinophils % 0.7 Basophils % 0.1 Neutrophils # 11.4 H Lymphocytes # 2.9 Monocytes # 1.1 Eosinophils # 0.1 Basophils # 0.0 Urine Opiates Screen Ur Buprenorphine Scrn Ur Barbiturates Screen Ur Phencyclidine Scrn Ur Amphetamines Screen U Benzodiazepines Scrn Urine Cocaine Screen U Marijuana (THC) Screen Ur Drug Screen Interp Screen Baby's Blood Type Mother's Blood Type Rhogam Indicated Rhogam Req for Mother Date of admission: 10/29/18 05:47 Primary care physician: PCP NONE Discharging clinician: Rossana Garcia Anticipated date of discharge: 10/31/18 - Patient Status Disposition: Home, Self-Care Condition: Good Functional capacity at discharge: independent ambulation Overall status at discharge: patient is progressing back to baseline - Discharge Instructions Follow Up With: NONE,PCP [Primary Care Provider] - Juan Gaviria MD [Partnered Physician] - - Diet and Activity Activity: increase activity as tolerated Diet: regular diet Hospital Course Reason for admission: section Delivery: section Episiotomy: none Laceration: none Other procedures: none complications: none Discharge diagnosis: IUP at term delivered [place] baby: male Time Attestation: Total time spent providing and/or coordinating discharge services: Time Spent: Less than 30 minutes - VTE Documentation of Mechanical Device: Intermittent pneumatic compression device Exam - Constitutional Vitals: Temp Pulse Resp BP Pulse Ox 97.6 F 102 16 119/79 98 10/30/18 20:29 10/30/18 20:29 10/30/18 20:29 10/30/18 20:29 10/30/18 20:29 General appearance IM: A&O X 3, pleasant, no acute distress, obese, answers questions appropriately - Respiratory Respiratory exam: Present: CTAB - Cardiovascular Cardiovascular exam IM: Present: RRR, +S1, +S2 - GI/Abdominal GI/Abdominal exam IM: normal bowel sounds, no peritoneal signs Incision: normal, dry, intact, dressed - Rectal Rectal exam: deferred - Uterine Tone: Firm Uterus Position: 2 Fingers Below Umbilicus, Midline - Extremities Exam Extremities exam IM: Present: full ROM, normal capillary refill, normal inspection, radial pulses palpable and symmetrical - Neurological Exam Neurological exam: alert, CN II-XII intact, normal gait, oriented X3, reflexes normal, no focal deficits, strengths equal and symetr throughout - Psychiatric Additional comments: Patient denies history of anxiety and depression. Signs and symptoms of depression discussed with patient and partner and both verbalized understanding of when to seek help.
[2018-10-31] MEDS ORDERED: Rho Immune Globulin 1,500 UNIT SYRINGE IM ONE (09:15)
== END 2018-10-31 09:54 | disposition home or self-care (01) | DRG 788 ==
LOC: SAMDAY 05:45 → 1NENULAB 05:47 → 1NENUOBS 11:43
PROVIDERS: ADMIT Obstetrics & Gynecology; ATTEND Obstetrics & Gynecology

== ENCOUNTER 2021-09-24 01:15 | Inpatient (IN) ==
[~2021-09-24 01:15] MED LIST: Azithromycin 500 MG in 0.9 % Sodium Chloride 250 ML IVPB PRN; CeFAZolin 2,000 MG/120 ML BAG IVPB ONE; Famotidine 20 MG/2 ML VIAL IVP PRN; Metoclopramide 10 MG/2 ML VIAL IVP PRN; Naloxone 0.4 MG/ML INJ IVP PRN; Ondansetron 4 MG/2 ML VIAL IVP PRN; Oxytocin 30 UNIT/503 ML BAG IVC SCH; Ringers Solution, Lactated 1,000 ML IVC ONE; Ringers Solution, Lactated 1,000 ML IVC SCH
[2021-09-24 01:38] LABS: Basophils % 0.2 %; Eosinophils # 0.2 K/mcL (0.0-0.6); Eosinophils % 0.9 %; Hematocrit 39.1 % (35.3-44.9); Hemoglobin 12.4 g/dL (11.5-15.4); Immature Granulocytes % 0.7 % (0-4); Lymphocytes # 2.6 K/mcL (0.6-4.6); Lymphocytes % 15.1 %; Mean Corpuscular HGB Conc 31.7 g/dL (31.6-35.5); Mean Corpuscular Volume 88.3 fL (83.0-100.0); Mean Platelet Volume 11.3 fL (9.4-12.4); Monocytes # 0.9 K/mcL (0.0-1.3); Monocytes % 5.2 %; Neutrophils # 13.3 K/mcL (1.6-8.9); Platelet Count 228 K/mcL (140-400); Red Blood Count 4.43 M/mcL (3.82-4.97); Red Cell Distribution Width 15.4 % (11.5-14.5); Segmented Neutrophils % 77.9 %; White Blood Count 17.1 K/mcL (4.3-11.1)
[2021-09-24 01:45] LABS: Amphetamine Screen,Urine Negative ng/mL (Cutoff=1000); Barbiturate Screen,Urine Negative ng/mL (Cutoff=200); Benzodiazepines Screen,Urine Negative ng/mL (Cutoff=200); Cannabinoid Screen,Urine Negative ng/mL (Cutoff = 50); Cocaine Screen,Urine Negative ng/mL (Cutoff= 300); Opiate Screen,Urine Negative ng/mL (Cutoff=300); Phencyclidine Screen,Urine Negative ng/mL (Cutoff=25)
[2021-09-24] MEDS ORDERED: *HR* FentaNYL (PF) 100 MCG/2 ML VIAL IVP PRN (02:08)
[2021-09-24] MEDS ORDERED: Acetaminophen IV 1,000 MG/100 ML BAG IVPB PRN (02:08)
[2021-09-24] MEDS ORDERED: *HR* OxyCODONE Immed Rel 5 MG TABLET PO PRN ×2 (02:08→06:17)
[2021-09-24] MEDS ORDERED: Promethazine 6.25 MG in Water for inj. (sterile) 20 ML IVPB PRN (02:08)
[2021-09-24] MEDS ORDERED: *HR* Nalbuphine 10 MG/ML AMPUL IV PRN (02:10)
[2021-09-24] MEDS ORDERED: *HR* Morphine Sulfate/PF 10 MG/10 ML AMPUL ONE (02:13)
[2021-09-24] MEDS ORDERED: Ondansetron 4 MG/2 ML VIAL ONE ×2 (02:15→03:53)
[2021-09-24] MEDS ORDERED: Ringers Solution, Lactated 1,000 ML ONE (02:51)
[2021-09-24] MEDS ORDERED: Ketorolac 30 MG/ML VIAL ONE (03:58)
[2021-09-24] MEDS ORDERED: Metoclopramide 10 MG/2 ML VIAL IVP PRN (06:17)
[2021-09-24] MEDS ORDERED: Oxytocin 30 UNIT/503 ML BAG IVC SCH (06:17)
[2021-09-24] MEDS ORDERED: Rho Immune Globulin 1,500 UNIT SYRINGE IM ONE (06:17)
[2021-09-24] MEDS ORDERED: OXYTOCIN/RINGERS LACTATE 10 UNIT/166.6 ML BAG IVC ONE (06:17)
[2021-09-24] MEDS ORDERED: Ondansetron 4 MG/2 ML VIAL IVP PRN (06:17)
[2021-09-24] MEDS ORDERED: Simethicone 80 MG TAB.CHEW PO PRN (06:17)
[2021-09-24] MEDS ORDERED: METRONIDAZOLE 500 MG PO SCH (09:00)
[2021-09-24] MEDS: Acetaminophen 325 MG TABLET PO SCH ×3 (12:11→21:47)
[2021-09-24] MEDS: Ibuprofen 600 MG TABLET PO SCH ×3 (12:12→21:46)
[2021-09-24] MEDS: Prenatal Vit/FA 1 EACH TABLET PO SCH (12:17)
[2021-09-24] MEDS: metroNIDAZOLE 500 MG TABLET PO SCH ×3 (15:38→21:46)
[2021-09-24] MEDS: cephALEXin 500 MG CAPSULE PO SCH ×3 (15:38→21:47)
[2021-09-25] MEDS: Ibuprofen 600 MG TABLET PO SCH ×3 (04:12→11:49)
[2021-09-25] MEDS: Acetaminophen 325 MG TABLET PO SCH ×3 (04:12→11:49)
[2021-09-25 07:10] VITALS: BP 100/69; PULSE 86; TEMP 98.2; O2SAT 97
[2021-09-25] MEDS: metroNIDAZOLE 500 MG TABLET PO SCH (09:17)
[2021-09-25] MEDS: Prenatal Vit/FA 1 EACH TABLET PO SCH (09:17)
[2021-09-25] MEDS: cephALEXin 500 MG CAPSULE PO SCH (09:17)
[2021-09-25] MEDS ORDERED: Lanolin 7 G OINT...G. TP PRN (09:38)
[2021-09-25 11:49] LABS: Basophils % 0.3 %; Eosinophils # 0.2 K/mcL (0.0-0.6); Eosinophils % 1.9 %; Hematocrit 35.2 % (35.3-44.9); Hemoglobin 11.2 g/dL (11.5-15.4); Immature Granulocytes % 0.6 % (0-4); Lymphocytes # 1.8 K/mcL (0.6-4.6); Lymphocytes % 15.2 %; Mean Corpuscular HGB Conc 31.8 g/dL (31.6-35.5); Mean Corpuscular Hemoglobin 28.2 pg (28.0-33.3); Mean Corpuscular Volume 88.7 fL (83.0-100.0); Mean Platelet Volume 10.8 fL (9.4-12.4); Monocytes # 0.6 K/mcL (0.0-1.3); Monocytes % 5.2 %; Neutrophils # 9.1 K/mcL (1.6-8.9); Platelet Count 237 K/mcL (140-400); Red Blood Count 3.97 M/mcL (3.82-4.97); Red Cell Distribution Width 15.9 % (11.5-14.5); Segmented Neutrophils % 76.8 %; White Blood Count 11.8 K/mcL (4.3-11.1)
== END 2021-09-25 13:45 | disposition home or self-care (01) | DRG 788 ==
LOC: 1NENULAB → 1NENUOBS 06:17
PROVIDERS: ADMIT Obstetrics & Gynecology; ATTEND Obstetrics & Gynecology